=== PATIENT | male | born 1965 | race Caucasian/White ===

== ENCOUNTER 2020-12-27 12:03 | Emergency (ER) | payer MEDICAID ==
[~2020-12-27] VITALS: Ht 172.7 cm; Wt 131.3 kg
[~2020-12-27 12:03] MED LIST: ATOR10TA9 PO; CHLO10TA2 PO; CHLO25CA9 PO; FOLI0.4T5 PO; GABA300C10 PO; GLIM1TAB7 PO; LISI-170 PO; METF10002 PO; METO-99 PO; METO25TA35 PO; OMEP40CA42 PO; THIA100T67 PO; WARF-36 PO; WARF7.5T46 PO
--- NOTE | 2020-12-27 12:36 | NUR ---
PT CAME IN AFTER HAVING A SYNCOPLE EPISODE LAST NIGHT. "MY BP HAS BEEN REALLY LOW AND I THINK THATS WHY I FELL OVER. ALSO WHEN I STAND UP I GET LIGHT HEADED AND SOB" PT HAS HX OF AFIB AND DMII. PT ALSO HAS OPEN WOUNDS BILAT LOWER LEGS WITH REDNESS AND WEEPING. PT RESTING IN GURNEY. EKG COMPLETE. CONNECTED TO ALL MONITORING EQUIPMENT
[2020-12-27] MEDS ORDERED: SODIUM CHLORIDE FLUSH 10ML SYR IVF ONE (13:30)
[2020-12-27 13:41] LABS: BASOPHILS % (AUTO) 0 % (0-1); EOSINOPHILS % (AUTO) 7 % (1-7); LYMPHOCYTES % (AUTO) 26 % (22-44); MEAN CORPUSCULAR HEMOGLOBIN 29.3 pg (27.5-34.5); MEAN CORPUSCULAR HGB CONC 33.3 g/dL (33.2-36.2); MEAN PLATELET VOLUME 8.3 fL (7.4-10.4); MONOCYTES % (AUTO) 6 % (2-9); NEUTROPHILS % (AUTO) 61 % (42-75); PLATELET COUNT 256 x10^3/uL (130-400); RED BLOOD COUNT 4.75 x10^6/uL (4.38-5.82); RED CELL DISTRIBUTION WIDTH 15.5 % (9.4-14.8)
[2020-12-27 13:42] LABS: MD NO
[2020-12-27 13:48] LABS: ALANINE AMINOTRANSFERASE 24 U/L (12-78); ALBUMIN 3.5 g/dL (3.4-5.0); ANION GAP 5 mmol/L (5-15); CALCIUM 9.6 mg/dL (8.5-10.1); CHLORIDE 98 mmol/L (98-107); CREATININE 0.97 mg/dL (0.7-1.3)
[2020-12-27 13:52] LABS: ALKALINE PHOSPHATASE 138 U/L (45-117); BILIRUBIN,TOTAL 0.8 mg/dL (0.2-1.0); TOTAL PROTEIN 7.2 g/dL (6.4-8.2); TROPONIN I < 0.015 ng/mL (0.000-0.045)
[2020-12-27 13:58] LABS: MICROSCOPIC NOT IND
--- NOTE | 2020-12-27 14:16 | NUR ---
PT SITTING ON GURNEY, WATCHING TV. NAD/VSS. NO NEEDS AT THIS TIME. CALL LIGHT WITHIN REACH.
--- NOTE | 2020-12-27 16:12 | NUR ---
PT SITTING ON GURNEY, WATCHING TV. NAD/VSS. NO NEEDS AT THIS TIME. CALL LIGHT WITHIN REACH
[2020-12-27] MEDS ORDERED: SODIUM CHLORIDE 0.9% 1,000ML IVBOLUS ONE (16:30)
--- NOTE | 2020-12-27 17:01 | NUR ---
xray at bs
[2020-12-27] MEDS ORDERED: ACETAMINOPHEN 500 MG TABLET PO ONE (17:30)
[2020-12-27] MEDS ORDERED: ACETAMINOPHEN 500 MG TABLET ONE (17:33)
[2020-12-27] MEDS ORDERED: NEOSPORIN OINT. PKT 1 PACKET ONE (17:55)
[2020-12-27 18:18] VITALS: BP 118/66
--- NOTE | 2020-12-27 18:31 | NUR ---
Patient given discharge instructions and they have confirmed that they understand the instructions. Patient ambulatory with steady gait.
== END 2020-12-27 18:32 | disposition home or self-care (01) ==
LOC: ED 15:51
DX: R55 Syncope and collapse (principal); E86.0 Dehydration; I83.11 Varicose veins of right lower extremity with inflammation; F17.210 Nicotine dependence, cigarettes, uncomplicated; L03.116 Cellulitis of left lower limb; L03.115 Cellulitis of right lower limb; Z79.01 Long term (current) use of anticoagulants; I10 Essential (primary) hypertension; E11.9 Type 2 diabetes mellitus without complications; I48.91 Unspecified atrial fibrillation
CPT/HCPCS: 36415; 71045; 73590; 80053; 81003; 83605; 83735; 83880; 84145; 84484; 85025; 87040; 93005; 93970; 96360; 99285; J7030

== ENCOUNTER 2021-01-18 09:00 | Inpatient (IN) | payer MEDICAID ==
[~2021-01-18] VITALS: Ht 172.7 cm; Wt 140.2 kg
[2021-01-18 09:40] VITALS: BP 86/45
[2021-01-18 10:40] LABS: ANION GAP 12 mmol/L (5-15); CHLORIDE 101 mmol/L (98-107); CHOLESTEROL, TOTAL 145 mg/dL (140-239); CREATININE 1.08 mg/dL (0.7-1.3); TRIGLYCERIDES 154 mg/dL (50-200); VLDL CHOLESTEROL 31 mg/dL (0-25)
[2021-01-18 10:44] LABS: FREE T4 (FREE THYROXINE) 0.84 ng/dL (0.76-1.46); HDL CHOL % 25 % (26-37); HDL CHOLESTEROL (DIRECT) 36 mg/dL (40-60); LDL CHOLESTEROL,CALCULATED 78 mg/dL (54-169); LDL/HDL RATIO 2.2 (0.5-3.0); TROPONIN I < 0.015 ng/mL (0.000-0.045)
[2021-01-18] MEDS ORDERED: ONDANSETRON 2MG/ML, 2ML IV PRN (11:30)
[2021-01-18] MEDS ORDERED: BISACODYL 10 MG SUPP PR PRN (11:30)
[2021-01-18] MEDS ORDERED: ACETAMINOPHEN 325 MG TABLET PO PRN (11:30)
[2021-01-18] MEDS ORDERED: BISACODYL 5 MG EC TABLET PO PRN (11:30)
[2021-01-18] MEDS: SOTALOL 80MG TABLET PO SCH ×2 (11:57→23:39)
[2021-01-18 13:45] VITALS: BP 102/69
[2021-01-18 15:38] LABS: TROPONIN I < 0.015 ng/mL (0.000-0.045)
[2021-01-18] MEDS: INSULIN LISPRO 100 UNITS/ML, PEN SQ-INSULIN SCH ×2 (17:32→20:53)
[2021-01-18] MEDS: metFORMIN 500 MG TABLET PO SCH (17:59)
[2021-01-18 18:40] VITALS: BP 128/74
[2021-01-18] MEDS: DULOXETINE 30 MG CAPSULE.DR PO SCH (20:42)
[2021-01-18] MEDS: APIXABAN 5 MG TABLET PO SCH (20:42)
[2021-01-18] MEDS: ATORVASTATIN 40 MG TABLET PO SCH (20:42)
[2021-01-18] MEDS: GABAPENTIN 100 MG CAPSULE PO SCH (20:43)
[2021-01-18] MEDS ORDERED: EMPA25TA PO (20:53)
[2021-01-18 22:10] LABS: TROPONIN I < 0.015 ng/mL (0.000-0.045)
[2021-01-18] MEDS: ZOLPIDEM 5MG TABLET PO PRN (23:39)
[2021-01-18 23:40] VITALS: BP 97/63
[2021-01-19 02:27] VITALS: BP 158/81
[2021-01-19 07:36] VITALS: BP 125/82
[2021-01-19] MEDS: GABAPENTIN 100 MG CAPSULE PO SCH ×2 (08:10→21:12)
[2021-01-19] MEDS: metFORMIN 500 MG TABLET PO SCH ×2 (08:10→17:00)
[2021-01-19] MEDS: DULOXETINE 30 MG CAPSULE.DR PO SCH ×2 (08:10→21:12)
[2021-01-19] MEDS: APIXABAN 5 MG TABLET PO SCH ×2 (08:10→21:12)
[2021-01-19] MEDS: INSULIN LISPRO 100 UNITS/ML, PEN SQ-INSULIN SCH ×4 (08:34→21:15)
[2021-01-19] MEDS ORDERED: HYDROCHLOROTHIAZIDE 25 MG TABLET PO SCH (09:00)
[2021-01-19] MEDS: SOTALOL 120MG TABLET PO SCH ×2 (09:06→21:12)
[2021-01-19 10:33] LABS: % IRON SATURATION 17 % (20-55); IRON LEVEL 84 mcg/dL (65-175); TOTAL IRON BINDING CAPACITY 489 mcg/dL (250-450)
[2021-01-19 12:42] VITALS: BP 117/78
[2021-01-19 19:50] VITALS: BP 147/82
[2021-01-19] MEDS: ATORVASTATIN 40 MG TABLET PO SCH (21:11)
[2021-01-19] MEDS: ZOLPIDEM 5MG TABLET PO PRN (21:22)
[2021-01-20 01:49] VITALS: BP 129/78
[2021-01-20 04:56] LABS: BASOPHILS % (AUTO) 2 % (0-1); EOSINOPHILS % (AUTO) 6 % (1-7); LYMPHOCYTES % (AUTO) 36 % (22-44); MEAN CORPUSCULAR HEMOGLOBIN 28.8 pg (27.5-34.5); MEAN CORPUSCULAR HGB CONC 32.2 g/dL (33.2-36.2); MEAN PLATELET VOLUME 8.2 fL (7.4-10.4); MONOCYTES % (AUTO) 8 % (2-9); NEUTROPHILS % (AUTO) 48 % (42-75); PLATELET COUNT 180 x10^3/uL (130-400); RED BLOOD COUNT 4.21 x10^6/uL (4.38-5.82); RED CELL DISTRIBUTION WIDTH 15.6 % (9.4-14.8)
[2021-01-20 05:01] LABS: MD NO
[2021-01-20 05:10] LABS: ANION GAP 5 mmol/L (5-15); CALCIUM 8.7 mg/dL (8.5-10.1); CHLORIDE 100 mmol/L (98-107)
[2021-01-20 05:11] LABS: CREATININE 0.96 mg/dL (0.7-1.3)
[2021-01-20] MEDS: INSULIN LISPRO 100 UNITS/ML, PEN SQ-INSULIN SCH (08:25)
[2021-01-20] MEDS: SOTALOL 120MG TABLET PO SCH (08:26)
[2021-01-20] MEDS: metFORMIN 500 MG TABLET PO SCH (08:26)
[2021-01-20] MEDS: GABAPENTIN 100 MG CAPSULE PO SCH (08:26)
[2021-01-20] MEDS: APIXABAN 5 MG TABLET PO SCH (08:26)
[2021-01-20] MEDS: DULOXETINE 30 MG CAPSULE.DR PO SCH (08:26)
[2021-01-20 08:30] VITALS: BP 113/75
[2021-01-20] MEDS ORDERED: APIX5TAB PO (10:17)
[2021-01-20] MEDS ORDERED: SOTA120T14 PO (10:17)
== END 2021-01-20 11:33 | disposition home or self-care (01) | DRG 201 ==
LOC: 5SO 09:02 → DCLOUNGE 01-20 11:27
PROVIDERS: ADMIT Internal Medicine Cardiovascular Disease; ATTEND Internal Medicine Cardiovascular Disease
DX: I48.0 Paroxysmal atrial fibrillation (principal); D68.69 Other thrombophilia; Z68.42 Body mass index [BMI] 45.0-49.9, adult; E11.9 Type 2 diabetes mellitus without complications; D64.9 Anemia, unspecified; I10 Essential (primary) hypertension; E66.9 Obesity, unspecified; M19.90 Unspecified osteoarthritis, unspecified site; Z87.891 Personal history of nicotine dependence; Z79.01 Long term (current) use of anticoagulants
CPT/HCPCS: 36415; 80048; 80061; 82962; 83540; 83550; 84439; 84443; 84484; 85014; 85018; 85025; 93005; G0378; J1815

== ENCOUNTER 2021-02-11 05:59 | Day surgery (SDC) | payer MEDICAID ==
[~2021-02-11] VITALS: Ht 167.6 cm; Wt 127.0 kg
[~2021-02-11 05:59] MED LIST changes: +APIX5TAB PO; +EMPA25TA PO; +SOTA120T14 PO
[2021-02-11 06:23] VITALS: BP 105/62
[2021-02-11] MEDS ORDERED: SODIUM CHLORIDE 0.9% 500 ML IV PRN (06:30)
[2021-02-11] MEDS ORDERED: DULO60CA7 PO (06:52)
[2021-02-11] MEDS ORDERED: ATOR40TA PO (06:52)
[2021-02-11] MEDS ORDERED: APIX5TAB PO (06:53)
[2021-02-11] MEDS ORDERED: ESOM40CA PO (06:53)
[2021-02-11] MEDS ORDERED: INSU100I11 SUBD (06:55)
[2021-02-11] MEDS ORDERED: PREG100C PO (06:56)
[2021-02-11] MEDS ORDERED: LIRA0.6P2 PO (06:58)
[2021-02-11] MEDS ORDERED: INSU100V8 SQ (06:59)
[2021-02-11] MEDS ORDERED: HYDR25TA6 PO (07:00)
[2021-02-11 07:03] LABS: ANION GAP 6 mmol/L (5-15); CALCIUM 9.1 mg/dL (8.5-10.1); CHLORIDE 102 mmol/L (98-107); CREATININE 0.91 mg/dL (0.7-1.3)
[2021-02-11] MEDS ORDERED: PROPOFOL 10 MG/ML, 20ML ONE (07:05)
[2021-02-11] MEDS ORDERED: VALS40TA2 PO (07:06)
== END 2021-02-11 09:01 | disposition home or self-care (01) ==
LOC: CACL 05:59
PROVIDERS: ATTEND Internal Medicine Cardiovascular Disease
DX: I48.0 Paroxysmal atrial fibrillation (principal); I10 Essential (primary) hypertension; E78.2 Mixed hyperlipidemia; E11.9 Type 2 diabetes mellitus without complications; G47.33 Obstructive sleep apnea (adult) (pediatric); E66.9 Obesity, unspecified; F17.210 Nicotine dependence, cigarettes, uncomplicated; Z79.01 Long term (current) use of anticoagulants; Z79.4 Long term (current) use of insulin; Z79.899 Other long term (current) drug therapy
CPT/HCPCS: 36415; 80048; 92960; 93005; J2704

== ENCOUNTER → 2021-03-10 | Outpatient (CLI) | payer MEDICAID ==
[~2021-03-10] MED LIST changes: +ATOR40TA PO; +DULO60CA7 PO; +ESOM40CA PO; +HYDR25TA6 PO; +INSU100I11 SUBD; +INSU100V8 SQ; +LIRA0.6P2 PO; -OMEP40CA42 PO; +OMEP40CA8 PO; +PREG100C PO; +VALS40TA2 PO
== END | disposition home or self-care (01) ==
LOC: CVU 06:47
PROVIDERS: ATTEND Internal Medicine Clinical Cardiac Electrophysiology
DX: I48.0 Paroxysmal atrial fibrillation (principal); E66.01 Morbid (severe) obesity due to excess calories; Z87.891 Personal history of nicotine dependence
CPT/HCPCS: 93306